=== PATIENT | female | born 1990 | race American Indian/Alaskan Native ===

== ENCOUNTER 2017-12-04 10:10 | Emergency (ER) | payer SELFPAY ==
[2017-06-29 20:41] VITALS: BMI 34.0
[2017-12-04] MEDS ORDERED: Betamethasone Soluspan 30 mg/5mL Inj Susp IM ONE (10:40)
[2017-12-04 11:08] LABS: BASO % 0.8 % (0.0-2.0); EOS # 0.1 K/uL (0.0-0.7); EOS % 2.3 % (0.0-4.0); HEMOGLOBIN 9.6 g/dL (11.0-16.0); LYMPH # 0.7 K/uL (1.0-4.3); LYMPH % 14.3 % (20.0-40.0); MEAN CELL VOLUME 78.8 fL (81.0-99.0); MEAN CORPUSCULAR HEMOGLOBIN 26.5 pg (27.0-31.0); MEAN CORPUSCULAR HGB CONC 33.6 g/dL (33.0-37.0); MEAN PLATELET VOLUME 6.6 fL (7.2-11.7); MONO # 0.3 K/uL (0.0-0.8); MONO % 5.8 % (0.0-10.0); NEUT # 3.7 K/uL (1.8-7.0); NEUT % 76.8 % (50.0-75.0); RBC 3.63 Mil/uL (3.80-5.20); RED CELL DISTRIBUTION WIDTH 15.4 % (11.5-14.5); WHITE BLOOD COUNT 4.8 K/uL (4.8-10.8)
[2017-12-04 11:19] LABS: SQUAMOUS EPITHIAL 9 /hpf (0-5); URINE BACTERIA RARE (<OCC); URINE BILIRUBIN NEGATIVE (NEGATIVE); URINE BLOOD NEGATIVE (NEGATIVE); URINE CLARITY Hazy (Clear); URINE COLOR Yellow (YELLOW); URINE GLUCOSE (UA) NORMAL (Normal); URINE LEUKOCYTE ESTERASE 3+ Leu/uL (Negative); URINE PROTEIN 1+ mg/dL (NEGATIVE)
[2017-12-04 11:20] LABS: ALB/GLOB RATIO 0.6 (1.0-2.1); ALBUMIN 3.1 g/dL (3.5-5.0); ALT/SGPT 19 U/L (9-52); AST/SGOT 27 U/L (14-36); BILIRUBIN,DIRECT 0.3 mg/dL (0.0-0.4); BLOOD UREA NITROGEN 8 mg/dL (7-17); CALCIUM 8.4 mg/dl (8.6-10.4); GFR AFRICAN-AMERICAN > 60; GFR NON-AFRICAN AMERICAN > 60
--- NOTE | 2017-12-04 12:25 | US ---
PROCEDURE: Obstetrical ultrasound examination, limited HISTORY: Decreased movement COMPARISON: Not available TECHNIQUE: Transabdominal FINDINGS: Examination demonstrates a single live intrauterine gestation in breech presentation. The heart rate is 132 beats per minute. A normal posterior placenta is identified. There is no evidence of placenta previa. A normal quantity of amniotic fluid is visualized. The cervix is closed and measures 3.6 cm in length. biometry yields a gestational age of 28 weeks 6 days. The ANASTASIIA by ultrasound is 02/20/2018. The EFW is 1331 g. Limited review of anatomy demonstrates fluid distending the stomach and urinary bladder. Two normal kidneys are visualized. A 4 chamber heart is visualized. A three-vessel umbilical cord is identified. The anterior abdominal wall is intact. A limited biophysical profile examination yields a score of 8 out of 8. IMPRESSION: Single live intrauterine gestation of approximately 28 weeks 6 days gestational age by ultrasound. heart rate 132. Normal amniotic fluid volume. Posterior placenta. No previa. Cervix long and closed. Breech presentation. No gross anatomic abnormality. Anatomic evaluation limited. Biophysical profile score 8 out of 8.
--- NOTE | 2017-12-04 13:11 | OBHP ---
Datetime: 12/04/2017 11:13 Admit Comment, IP Provider: CC: Pruritus Patient is a 27 year old female at 29 weeks and 1 day with ANASTASIIA of 02/08/18 by US and LMP (1 ), who presents to [facility] with complaints of itchiness and lower abdominal pressure that has be en ongoing for a couple of days. Patient admits to movement and nausea but denies fever, chills , vomiting, contractions, abnormal vaginal bleeding and leakage of fluid. 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 Stable 2. CBC, CMP, Liver profile, Bile acid fraction and total and UA 3. BPP 4. Celestone 12mg IM once 5. Further management as per labs All plans and management discussed Dr. Julian labs are normal ve closed plan dc home benadry prn betamethosone tomorrow macrobid ptl given f/u in hrist in 1day Extremities - PN: Normal Abdomen - PN: Normal Lungs - PN: Normal Heart - PN: Normal Thyroid - PN: Normal Neurologic - PN: Normal HEENT - PN: Normal General - PN: Normal FHR - Baseline A Provider: 150 Comments, ACOG Physical Exam: Gen: NAD, AAOx3 Cardio: RRR, no murmur, +S1, +S2 Pulm: CTA bilaterally Abd: + bowel sound. gravid Ext: No cyanosis, no edema EFM: 150, +accelerations [place]: Varibility (Annotations: Data stored by CPN on behalf of user) Gestation - Est Wks by US: 29.1 EGA AdmitDate IP: 29.1 Vital Signs Provider: Reviewed; Within Normal Limits IP Chief Complaint: Other NICHD Variability Prov Fetus A: Moderate 6-25bpm NICHD Accel Fetus A IP Provider: [id number] NICHD Decel Fetus A IP Provider: None
--- NOTE | 2017-12-04 13:14 | OBDCSUM ---
Datetime: 12/04/2017 13:10 Discharged to, Provider: Home Follow up at, Provider: 1 day Follow up in weeks, Provider: graciela Discharge Comment, Provider: dc home benadry prn betamethosone tomorrow macrobid ptl given f/u in hrist in 1day Discharge Diagnosis Prov Other: 29 week cf itching
--- NOTE | 2017-12-05 12:43 | OBHP ---
Datetime: 12/04/2017 11:13 Admit Comment, IP Provider: CC: Pruritus Patient is a 27 year old female at 29 weeks and 1 day with ANASTASIIA of 02/08/18 by US and LMP (1 ), who presents to [facility] with complaints of itchiness and lower abdominal pressure that has be en ongoing for a couple of days. Patient admits to movement and nausea but denies fever, chills , vomiting, contractions, abnormal vaginal bleeding and leakage of fluid. 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 Stable 2. CBC, CMP, Liver profile, Bile acid fraction and total and UA 3. BPP 4. Celestone 12mg IM once 5. Further management as per labs All plans and management discussed Dr. Julian labs are normal ve closed plan dc home benadry prn betamethosone tomorrow macrobid ptl given f/u in hrist in 1day before dc pt had cr=tcxs statted. pt npt feling ivf gieb ve closed plan [facility] [place] dr giron called and aware blofatoumata work resylt send pt understand and agrees IP Hx Assessment: The History has been Reviewed and is Current EGA AdmitDate IP: 29.1
[2017-12-06 11:21] VITALS: BP 115/67; PULSE 97
[2017-12-09 13:33] LABS: CHENODEOXYCHOLIC ACID <1.0 umol/L (< OR = 3.9)
== END 2017-12-04 16:39 | disposition short-term general hospital (02) ==
LOC: C.EROB 10:10
DX: O26.893 Other specified pregnancy related conditions, third trimester (principal); E84.9 Cystic fibrosis, unspecified; Z3A.29 29 weeks gestation of pregnancy
CPT/HCPCS: 76815; 76818; 80053; 81001; 82248; 83789; 85025; 99283; J0702